=== PATIENT | male | born 1985 | race Two or more races ===

== ENCOUNTER 2016-10-30 13:35 | Emergency (ER) | payer MEDICAID ==
[~2016-10-30] VITALS: Ht 182.9 cm; Wt 83.9 kg
[~2016-10-30 13:35] MED LIST: IPRA14.7 IH; MONT10TA22 PO; OXYC-34; OXYC30TA86 PO
[2016-10-30 13:38] VITALS: BP 132/74
[2016-10-30] MEDS ORDERED: IBUPROFEN 600 MG TABLET PO ONE ×2 (14:00→14:01)
== END 2016-10-30 15:51 | disposition home or self-care (01) ==
LOC: ER 13:37
DX: S19.9XXA Unspecified injury of neck, initial encounter (principal); J45.909 Unspecified asthma, uncomplicated; W22.8XXA Striking against or struck by other objects, initial encounter; Y92.89 Other specified places as the place of occurrence of the external cause; Y93.89 Activity, other specified; Y99.8 Other external cause status
CPT/HCPCS: 70360-TC; A4606; Z7610

== ENCOUNTER 2018-04-02 16:04 | Emergency (ER) | payer MEDICAID ==
[~2018-04-02] VITALS: Ht 182.9 cm; Wt 83.9 kg
[2018-04-02 16:04] VITALS: BP 112/85
[~2018-04-02 16:04] MED LIST changes: +OXYC-133; -OXYC-34
== END 2018-04-02 18:03 | disposition home or self-care (01) ==
LOC: ER 16:06
DX: M79.675 Pain in left toe(s) (principal); G89.29 Other chronic pain; J45.909 Unspecified asthma, uncomplicated
CPT/HCPCS: 73660; 99284; A4606; Z7610